=== PATIENT | male | born 1955 | race Caucasian/White ===

== ENCOUNTER → 2023-10-31 06:36 | Outpatient (REF) | payer MEDICARE, SELFPAY | LOC: HWRAD 06:36 | PROVIDERS: ATTENDING PHYSICIAN Urology; FAMILY PHYSICIAN Family Medicine | DX: N28.1 Cyst of kidney, acquired (principal) | CPT/HCPCS: 76775 ==

== ENCOUNTER → 2024-10-21 08:43 | Outpatient (REF) | payer MEDICARE, SELFPAY | LOC: HWRAD 08:43 | PROVIDERS: ATTENDING PHYSICIAN Urology; FAMILY PHYSICIAN Family Medicine | DX: N28.1 Cyst of kidney, acquired (principal) | CPT/HCPCS: 76775 ==

== ENCOUNTER → 2024-11-05 11:52 | Outpatient (REF) | payer MEDICARE, SELFPAY | LOC: REG 11:52 | PROVIDERS: ATTENDING PHYSICIAN Urology | DX: N28.1 Cyst of kidney, acquired (principal) | CPT/HCPCS: 36415; 82565 ==

== ENCOUNTER → 2024-11-07 06:27 | Outpatient (REF) | payer MEDICARE, SELFPAY | LOC: RAD 06:27 | PROVIDERS: ATTENDING PHYSICIAN Urology | DX: N28.1 Cyst of kidney, acquired (principal) | CPT/HCPCS: 74170; Q9967 ==